=== PATIENT | female | born 1985 | race African-American/Black ===

== ENCOUNTER 2018-01-17 12:58 | Emergency (ER) | payer SELFPAY, OTHER ==
[2018-01-17] MEDS: AZITHROMYCIN 250 MG TAB PO (15:59)
[2018-01-17] MEDS: CEFTRIAXONE 250 MG INJ IM (16:10)
[2018-01-17] MEDS: LIDOCAINE 1% (MPF) 5 ML VIAL INJ (16:11)
== END 2018-01-17 16:27 | disposition home or self-care (01) ==
LOC: FTE 12:58
DX: L98.8 Other specified disorders of the skin and subcutaneous tissue (principal); F17.210 Nicotine dependence, cigarettes, uncomplicated
CPT/HCPCS: 87591; 96372; 99284-25